=== PATIENT | male | born 1945 | race Two or more races ===

== ENCOUNTER 2019-03-17 00:14 | Emergency (ER) | payer OTHER ==
[~2019-03-17] VITALS: Ht 185.4 cm; Wt 75.3 kg
[2019-03-17] MEDS ORDERED: LORAZEPAM INJ 2 MG/ML VIAL ONE (00:32)
--- NOTE | 2019-03-17 00:35 | NUR ---
CHARLES FROM [facility] ASSISTED LIVING. TO ER BED 10. PT IS ALERT, AWAKE BUT CONFUSED. PT TRANSFERED TO BED WITH ASSIST. BROUGHT IN FOR AGGRESSIVE BEHAVIOR AT THE FACILITY, PER REPORT @ 10:30PM, PT GOT AGGRESSIVE WITH CAREGIVER AND PULLED HER HAIR. PT HAS HISTORY OF ALZHEIMERS AND DEMENTIA. MD AT BEDSIDE FOR EVAL. ORDERS RECEIVED NOTED AND CARRIED OUT.
[2019-03-17] MEDS ORDERED: LORAZEPAM INJ 2 MG/ML VIAL IM ONE (01:00)
--- NOTE | 2019-03-17 02:35 | NUR ---
Call the car called for BLS Transport. Pending ETA
--- NOTE | 2019-03-17 02:51 | NUR ---
[facility] Amb[facility] eta 35 minutes.
--- NOTE | 2019-03-17 03:10 | NUR ---
[facility]IV[facility] NOTIFIED OF PT RETURNING TO FACILITY.
--- NOTE | 2019-03-17 03:15 | NUR ---
[facility] AT BEDSIDE FOR PT TRANSPORT TO FACILITY. PT IS STABLE FOR TRANSPORT. REPORT GIVEN TO AMBULANCE STAFF
--- NOTE | 2019-03-17 03:16 | NUR ---
Patient discharged to home in stable condition. Written and verbal after care instructions given. Patient verbalizes understanding of instruction. Pt ambulatory with a steady gait
[2019-03-17 03:17] VITALS: BP 134/74
== END 2019-03-17 03:27 | disposition home or self-care (01) ==
LOC: ER 00:16
DX: G30.9 Alzheimer's disease, unspecified (principal); F02.80 Dementia in other diseases classified elsewhere, unspecified severity, without behavioral disturbance, psychotic disturbance, mood disturbance, and anxiety; I10 Essential (primary) hypertension
CPT/HCPCS: 96372; 99284; J2060